=== PATIENT | female | born 1955 | race Caucasian/White ===

== ENCOUNTER 2021-11-30 06:15 | Day surgery (SDC) | payer OTHER ==
[2021-11-30] MEDS ORDERED: Sodium Chloride 0.9% 1,000 ML IV SCH (07:00)
[2021-11-30] MEDS ORDERED: Midazolam 1 MG/ML 2 ML SDV ONE (07:17)
[2021-11-30] MEDS ORDERED: Propofol 200 MG/20 ML SDV ONE (07:17)
[2021-11-30] MEDS ORDERED: fentaNYL 100 MCG/2 ML SDV ONE (07:17)
[2021-11-30 09:20] VITALS: BP 130/70; PULSE 57
== END 2021-11-30 09:40 | disposition home or self-care (01) ==
LOC: JP.SDS 06:15
PROVIDERS: ATTEND Surgery
DX: D12.2 Benign neoplasm of ascending colon (principal); K57.30 Diverticulosis of large intestine without perforation or abscess without bleeding; I10 Essential (primary) hypertension; R73.03 Prediabetes
CPT/HCPCS: 88305; J2250; J2704; J3010; J7030

== ENCOUNTER 2025-01-07 06:52 | Day surgery (SDC) | payer OTHER ==
[2025-01-07] MEDS: Lactated Ringers 1,000 ML IV SCH (07:18)
[2025-01-07] MEDS ORDERED: fentaNYL 50 MCG/ML SDV ONE (07:33)
[2025-01-07] MEDS ORDERED: Propofol 200 MG/20 ML SDV ONE (07:33)
[2025-01-07] MEDS ORDERED: Midazolam 1 MG/ML 2 ML SDV ONE (07:33)
[2025-01-07 09:47] VITALS: BP 153/71; PULSE 48
== END 2025-01-07 09:48 | disposition home or self-care (01) ==
LOC: JP.SDS 06:52
PROVIDERS: ATTEND Surgery
DX: Z12.11 Encounter for screening for malignant neoplasm of colon (principal); D12.2 Benign neoplasm of ascending colon; D12.3 Benign neoplasm of transverse colon; K57.30 Diverticulosis of large intestine without perforation or abscess without bleeding; I10 Essential (primary) hypertension
CPT/HCPCS: 00811; 45385; 45390; 88305; J2250; J2704; J3010; J7120